=== PATIENT | male | born 1970 | race Hispanic/Latino ===

== ENCOUNTER 2023-04-22 11:15 | Observation (INO) | payer BC, OTHER ==
[~2023-04-22] VITALS: Ht 172.7 cm; Wt 121.1 kg
[2023-04-22 11:54] LABS: APPEARANCE,URINE CLEAR (CLEAR); BILIRUBIN,URINE NEGATIVE (NEGATIVE); COLOR,URINE YELLOW (YELLOW); GLUCOSE, URINE (UA) NEGATIVE (NEGATIVE); KETONES,URINE NEGATIVE (NEGATIVE); LEUKOCYTE ESTERASE ,URINE NEGATIVE Leu/uL (NEGATIVE); NITRATE,URINE NEGATIVE (NEGATIVE); OCCULT BLOOD,URINE NEGATIVE (NEGATIVE); PH,URINE 5.5 (5.0-8.0); PROTEIN,URINE 10 mg/dL (NEGATIVE); UROBILINOGEN,URINE 0.2 mg/dL (0.2-1.0)
[2023-04-22 12:14] LABS: MUCUS,URINE FEW LPF (None Seen); WBC,URINE 0-1 /HPF (0-1)
[2023-04-22 12:47] LABS: BASOPHILS % (AUTO) 0.2 % (0.0-5.0); HEMATOCRIT 41.6 % (42-54); LYMPHOCYTES % (AUTO) 3.7 % (21.0-51.0); MEAN CORPUSCULAR HEMOGLOBIN 29.6 pg (27.0-33.0); MEAN CORPUSCULAR HGB CONC 33.2 g/dL (32.0-36.0); MEAN CORPUSCULAR VOLUME 89.1 fL (79-99); MONOCYTES % (AUTO) 5.1 % (3.0-13.0); NEUTROPHILS % (AUTO) 90.5 % (40.0-77.0); PLATELET COUNT (AUTO) 229 K/uL (130-400); RED BLOOD CELL COUNT(AUTO) 4.67 MIL/uL (4.50-6.20); RED CELL DISTRIBUTION WIDTH 13.3 % (11.0-15.5); WHITE BLOOD COUNT (AUTO) 21.6 K/uL (4.8-10.8)
[2023-04-22 12:57] LABS: CREATININE 0.9 mg/dL (0.5-1.5); POTASSIUM 4.6 mmol/L (3.5-5.1)
[2023-04-22 13:02] LABS: ALBUMIN 3.7 g/dL (3.5-5.0); TOTAL PROTEIN, SERUM 7.8 g/dL (6.0-8.3)
[2023-04-22 13:47] LABS: INR 0.93 (0.85-1.15); PROTHROMBIN TIME 10.8 SEC (9.6-11.6)
[2023-04-22 13:48] LABS: PARTIAL THROMBOPLASTIN TIME 28.1 SEC (26.3-35.5)
[2023-04-22] MEDS ORDERED: 0.9%NACL 50ML IV SCH (13:50)
[2023-04-22] MEDS ORDERED: ZOSYN 3.375GM +NS 50ML IVPB SCH (14:00)
[2023-04-22] MEDS ORDERED: ONDANSETRON 4MG INJ IV PRN (15:30)
[2023-04-22] MEDS: 0.9%NACL 1000ML 1,000 ML IV SCH (16:11)
[2023-04-22 16:48] LABS: HEMOGLOBIN A1C 5.9 % (4.0-6.0)
[2023-04-22 17:40] VITALS: BP 144/85
[2023-04-22] MEDS ORDERED: ZOSYN 3.375GM+NS 50ML 50 ML IVPB SCH (21:00)
[2023-04-22 21:02] VITALS: BP 126/74
[2023-04-22 23:32] VITALS: BP 125/76
[2023-04-23] VITALS (29 sets, daily range): BP systolic 92–151; BP diastolic 49–89
[2023-04-23] MEDS: 0.9%NACL 1000ML 1,000 ML IV SCH ×3 (01:02→22:10)
[2023-04-23] MEDS: ZOSYN 3.375GM +NS 50ML IVPB SCH ×3 (04:36→19:52)
[2023-04-23] MEDS ORDERED: 0.9%NACL 50ML IV SCH (05:00)
[2023-04-23 05:32] LABS: BASOPHILS % (AUTO) 0.5 % (0.0-5.0); EOSINOPHILS % (AUTO) 0.6 % (0.0-8.0); HEMATOCRIT 39.3 % (42-54); LYMPHOCYTES % (AUTO) 17.7 % (21.0-51.0); MEAN CORPUSCULAR HEMOGLOBIN 29.2 pg (27.0-33.0); MEAN CORPUSCULAR HGB CONC 32.3 g/dL (32.0-36.0); MEAN CORPUSCULAR VOLUME 90.3 fL (79-99); MONOCYTES % (AUTO) 5.9 % (3.0-13.0); NEUTROPHILS % (AUTO) 74.7 % (40.0-77.0); PLATELET COUNT (AUTO) 234 K/uL (130-400); RED BLOOD CELL COUNT(AUTO) 4.35 MIL/uL (4.50-6.20); RED CELL DISTRIBUTION WIDTH 13.3 % (11.0-15.5); WHITE BLOOD COUNT (AUTO) 11.7 K/uL (4.8-10.8)
[2023-04-23 06:00] LABS: CREATININE 0.9 mg/dL (0.5-1.5); POTASSIUM 3.6 mmol/L (3.5-5.1); TOTAL PROTEIN, SERUM 6.8 g/dL (6.0-8.3)
[2023-04-23] MEDS: PANTOPRAZOLE 40 MG/VIAL IVP SCH (08:13)
[2023-04-23] MEDS ORDERED: SUCCINYLCHOLINE CHLORIDE 20 MG/ML 10 ML VIAL ONE (11:30)
[2023-04-23] MEDS ORDERED: LIDOCAINE PF 100MG/5ML (2%) SYRINGE 5ML ONE (11:31)
[2023-04-23] MEDS ORDERED: PROPOFOL 10 MG/ML 20ML VIAL IV ONE (11:31)
[2023-04-23] MEDS ORDERED: MIDAZOLAM HCL 1 MG/ML 2ML VIAL ONE (11:31)
[2023-04-23] MEDS ORDERED: FENTANYL CITRATE PF 50 MCG/1 ML 2ML VIAL ONE (11:31)
[2023-04-23] MEDS ORDERED: ROCURONIUM 10MG/1ML SYR 10 MG/ML ML ONE (11:31)
[2023-04-23] MEDS ORDERED: BUPIVACAINE/PF 0.5% 10ML VIAL ONE (11:38)
[2023-04-23] MEDS ORDERED: ONDANSETRON 4MG INJ ONE (12:04)
[2023-04-23] MEDS ORDERED: SUGAMMADEX SODIUM 200 MG/2 ML VIAL IV ONE (12:29)
[2023-04-23] MEDS ORDERED: MEPERIDINE-PF 25 MG/ML SYG ONE ×2 (12:45→12:55)
[2023-04-23] MEDS ORDERED: MORPHINE 4 MG SYG IVP PRN (14:00)
[2023-04-23] MEDS ORDERED: ACETAMINOPHEN 500 MG TABLET PO PRN (17:30)
[2023-04-23] MEDS: KETOROLAC 15MG/ML VIAL (15MG/ML) IV PRN (17:43)
[2023-04-24] MEDS: KETOROLAC 15MG/ML VIAL (15MG/ML) IV PRN (00:51)
[2023-04-24 03:36] VITALS: BP 100/62
[2023-04-24] MEDS: ZOSYN 3.375GM +NS 50ML IVPB SCH ×2 (04:34→12:39)
[2023-04-24 06:08] LABS: BASOPHILS % (AUTO) 0.5 % (0.0-5.0); EOSINOPHILS % (AUTO) 1.4 % (0.0-8.0); HEMATOCRIT 37.2 % (42-54); LYMPHOCYTES % (AUTO) 19.7 % (21.0-51.0); MEAN CORPUSCULAR HEMOGLOBIN 28.9 pg (27.0-33.0); MEAN CORPUSCULAR HGB CONC 31.7 g/dL (32.0-36.0); MONOCYTES % (AUTO) 6.6 % (3.0-13.0); NEUTROPHILS % (AUTO) 71.3 % (40.0-77.0); PLATELET COUNT (AUTO) 218 K/uL (130-400); RED BLOOD CELL COUNT(AUTO) 4.09 MIL/uL (4.50-6.20); RED CELL DISTRIBUTION WIDTH 13.5 % (11.0-15.5); WHITE BLOOD COUNT (AUTO) 10.3 K/uL (4.8-10.8)
[2023-04-24 06:31] LABS: ALBUMIN 2.7 g/dL (3.5-5.0); MAGNESIUM 1.9 mg/dL (1.80-2.40); POTASSIUM 3.7 mmol/L (3.5-5.1); TOTAL PROTEIN, SERUM 6.1 g/dL (6.0-8.3)
[2023-04-24 07:47] VITALS: BP 112/71
[2023-04-24] MEDS ORDERED: MAGNESIUM 2GM PREMIX 50ML 50 ML IV ONE (07:58)
[2023-04-24] MEDS: PANTOPRAZOLE 40 MG/VIAL IVP SCH (08:28)
[2023-04-24 12:00] VITALS: BP 114/54
== END 2023-04-24 15:15 | disposition home or self-care (01) ==
LOC: EDH 11:15 → EDHIP 15:27 → INTOOBSV 15:27 → 4AH 17:40
PROVIDERS: ADMIT Hospitalist; ATTEND Hospitalist
DX: K35.80 Unspecified acute appendicitis (principal); D72.829 Elevated white blood cell count, unspecified; D64.9 Anemia, unspecified; R73.9 Hyperglycemia, unspecified; K21.9 Gastro-esophageal reflux disease without esophagitis; E66.01 Morbid (severe) obesity due to excess calories; Z79.899 Other long term (current) drug therapy; Z68.41 Body mass index [BMI] 40.0-44.9, adult
CPT/HCPCS: 96365; 96366 ×3; 99285; 83036; 82550; 83615; 84484; 80053 ×3; 82728; 85025 ×3; 85610; 85730; 85651; 87040 ×2; 87088; 83605; 86140; 81001; 36415 ×3; 74176; 76705; 84145; 44970; 96361 ×2; 96375; 96376; 96367; 83735; J2543 ×7; J7030; J3010; J0330; J3490; J2001; J2250; J2704; J2405; C9113 ×2; J2175 ×2; J1885 ×2; C1769 ×3; A4649 ×2; A4930 ×2; G0378 ×3; J3475